=== PATIENT | female | born 2000 | race Two or more races ===

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

== ENCOUNTER 2024-11-06 18:32 | Emergency (ER) | payer OTHER ==
[~2024-11-06] VITALS: Ht 157.5 cm; Wt 59.0 kg
[~2024-11-06 18:32] MED LIST changes: +FERRACTIV IRON1 EACH; +TRANDATE300 MG PO
[2024-11-06 18:54] VITALS: BP 136/84; O2SAT 98
[2024-11-06] MEDS ORDERED: FAMOTIDINE/PF 20 MG in 0.9 % SODIUM CHLORIDE 8 ML IV PUSH STA (20:17)
[2024-11-06] MEDS ORDERED: RINGERS SOLUTION,LACTATED 1,000 ML IV SCH (20:30)
[2024-11-06] MEDS ORDERED: HYOSCYAMINE SULFATE 0.125 MG TAB.SUBL SL ONE (20:30)
[2024-11-06] MEDS ORDERED: ONDANSETRON HCL 2 MG/ML VIAL IV ONE (20:30)
[2024-11-06] MEDS ORDERED: HYOSCYAMINE SULFATE 0.125 MG TAB.SUBL ONE (20:43)
[2024-11-06] MEDS ORDERED: ONDANSETRON HCL 2 MG/ML VIAL ONE (20:43)
[2024-11-06] MEDS ORDERED: FAMOTIDINE/PF 20 MG/2 ML VIAL ONE (20:44)
[2024-11-06 21:19] LABS: BASO % 0.3 % (0.1-1.2); HEMOGLOBIN 12.9 g/dL (11.2-15.7); LYMPH # 1.12 (1.18-3.74); LYMPH % 7.1 % (19.3-53.1); MEAN CORPUSCULAR HEMOGLOBIN 24.2 pg (25.6-32.2); MONO # 0.52 (0.24-0.82); MONO % 3.3 % (4.7-12.5); NEUT # 14.04 (1.56-6.13); PLATELET COUNT 436 K/uL (163-369); RED BLOOD COUNT 5.32 M/uL (3.93-5.22); RED CELL DISTRIBUTION WIDTH 14.1 % (11.6-14.4)
[2024-11-06 21:46] LABS: ALBUMIN 3.5 gm/dL (3.4-5.0); BILIRUBIN TOTAL 0.67 mg/dL (0.3-1.2); CALCIUM 9.8 mg/dL (8.5-10.1); CREATININE SERUM 0.52 mg/dL (0.55-1.02); GFR 147.46; GLOBULINA 4.7 G/DL (2.4-3.5); POTASSIUM 4.06 mEq/L (3.5-5.1); TOTAL PROTEIN 8.2 gm/dL (6.4-8.2)
[2024-11-06] MEDS ORDERED: METOCLOPRAMIDE HCL 5 MG/ML VIAL ONE (22:26)
[2024-11-06] MEDS ORDERED: METOCLOPRAMIDE HCL 10 MG in DEXTROSE 5 % IN WATER 50 ML IV ONE (22:30)
[2024-11-06] MEDS ORDERED: PEPCID AC20 MG PO (23:02)
[2024-11-06] MEDS ORDERED: ONDANSETRON ODT8 MG PO (23:02)
[2024-11-06 23:04] LABS: PH,URINE 5.5 (5.0-8.0); URINE APPEARANCE Clear; URINE BILIRRUBIN Negative (NEGATIVE); URINE BLOOD Trace; URINE COLOR Yellow; URINE GLUCOSE Negative (NEGATIVE); URINE LEUKOCYTE Negative; URINE NITRATE Negative; URINE PROTEIN Trace (NEGATIVE)
[2024-11-06 23:09] LABS: URINE BACTERIA 597.2 uL (0.0-1933); URINE EPITHELIAL CELLS 27.2 uL (0.0-38.8); URINE RBC 5.5 uL (0.0-20.8); URINE WBC 19.9 uL (0.0-23.2)
[2024-11-06 23:27] LABS: URINE CAST 0.44 uL (0.0-1.40); URINE KETONE 80 (NEGATIVE)
== END 2024-11-06 23:56 | disposition home or self-care (01) ==
LOC: ER 18:32
PROVIDERS: General Practice
DX: O99.611 Diseases of the digestive system complicating pregnancy, first trimester (principal); K92.89 Other specified diseases of the digestive system; Z3A.08 8 weeks gestation of pregnancy; K52.89 Other specified noninfective gastroenteritis and colitis; I10 Essential (primary) hypertension

== ENCOUNTER 2024-11-08 12:21 | Emergency (ER) | payer OTHER ==
[~2024-11-08] VITALS: Ht 157.5 cm; Wt 59.0 kg
[~2024-11-08 12:21] MED LIST changes: +ONDANSETRON ODT8 MG PO; +PEPCID AC20 MG PO
[2024-11-08 17:04] LABS: BASO % 0.4 % (0.1-1.2); EOS # 0.03 (0.04-0.54); EOS % 0.4 % (0.7-7.0); HEMOGLOBIN 12.2 g/dL (11.2-15.7); LYMPH % 26.5 % (19.3-53.1); MEAN CORPUSCULAR HEMOGLOBIN 24.6 pg (25.6-32.2); MONO # 1.18 (0.24-0.82); NEUT # 4.57 (1.56-6.13); NEUT % 57.7 % (34.0-71.1); PLATELET COUNT 328 K/uL (163-369); RED BLOOD COUNT 4.96 M/uL (3.93-5.22)
[2024-11-08 17:09] LABS: MONO % 14.9 % (4.7-12.5)
[2024-11-08 17:53] LABS: URINE APPEARANCE Cloudy; URINE BILIRRUBIN Negative (NEGATIVE); URINE BLOOD Large; URINE COLOR Dark Yellow; URINE GLUCOSE Negative (NEGATIVE); URINE KETONE Negative (NEGATIVE); URINE LEUKOCYTE Moderate; URINE NITRATE Negative; URINE PROTEIN Trace (NEGATIVE)
[2024-11-08 17:56] LABS: URINE BACTERIA 3859.2 uL (0.0-1933); URINE EPITHELIAL CELLS 107.8 uL (0.0-38.8); URINE RBC 67.6 uL (0.0-20.8); URINE WBC 395.9 uL (0.0-23.2)
[2024-11-08 17:58] LABS: CREATININE SERUM 0.3 mg/dL (0.55-1.02); GFR 278.18; POTASSIUM 3.93 mEq/L (3.5-5.1)
[2024-11-08 18:09] LABS: URINE CAST 0.73 uL (0.0-1.40)
== END 2024-11-08 21:06 | disposition home or self-care (01) ==
LOC: ER 12:36
PROVIDERS: Emergency Medicine
DX: O20.8 Other hemorrhage in early pregnancy (principal); Z3A.08 8 weeks gestation of pregnancy

== ENCOUNTER 2025-04-26 08:43 | Emergency (ER) | payer OTHER ==
[~2025-04-26] VITALS: Ht 157.5 cm; Wt 59.0 kg
[2025-04-26] MEDS ORDERED: ACETAMINOPHEN 500 MG GEL..CAP PO ONE ×2 (09:30→10:06)
[2025-04-26] MEDS ORDERED: POLYETHYLENE GLYCOL 3350 17 GM BLIST.PACK PO ONE (09:30)
[2025-04-26 10:23] LABS: BASO % 0.2 % (0.1-1.2); EOS # 0.03 (0.04-0.54); EOS % 0.3 % (0.7-7.0); LYMPH # 2.17 (1.18-3.74); LYMPH % 19.6 % (19.3-53.1); MEAN PLATELET VOLUME 8.00 fl (9.4-12.4); MONO # 0.50 (0.24-0.82); MONO % 4.5 % (4.7-12.5); NEUT # 8.30 (1.56-6.13); NEUT % 75.1 % (34.0-71.1); RED CELL DISTRIBUTION WIDTH 13.5 % (11.6-14.4)
[2025-04-26 13:48] LABS: URINE APPEARANCE Clear; URINE BILIRRUBIN Negative (NEGATIVE); URINE BLOOD Negative; URINE COLOR Yellow; URINE GLUCOSE Negative (NEGATIVE); URINE KETONE Negative (NEGATIVE); URINE LEUKOCYTE Negative; URINE NITRATE Negative; URINE PROTEIN Negative (NEGATIVE); URINE UROBILINOGEN 0.2 E.U./dl
[2025-04-26 13:52] LABS: URINE BACTERIA 327.5 uL (0.0-1933); URINE EPITHELIAL CELLS 13.3 uL (0.0-38.8); URINE WBC 5.3 uL (0.0-23.2)
[2025-04-26 14:06] LABS: URINE CAST 0.00 uL (0.0-1.40); URINE RBC 1.9 uL (0.0-20.8)
== END 2025-04-26 13:22 | disposition home or self-care (01) ==
LOC: ER 08:43
PROVIDERS: General Practice
DX: Z33.1 Pregnant state, incidental (principal); Z3A.15 15 weeks gestation of pregnancy; R10.20 Pelvic and perineal pain unspecified side

== ENCOUNTER 2025-05-22 00:07 | Emergency (ER) | payer OTHER ==
[~2025-05-22] VITALS: Ht 157.5 cm; Wt 59.0 kg
[2025-05-22] MEDS ORDERED: ONDANSETRON HCL 2 MG/ML VIAL IV STA (03:06)
[2025-05-22] MEDS ORDERED: LACTOBACILLUS ACIDOPHILUS 1 CAP CAP PO STA (03:07)
[2025-05-22] MEDS ORDERED: FAMOTIDINE/PF 20 MG/2 ML VIAL IV PUSH STA (03:07)
[2025-05-22] MEDS ORDERED: 0.9 % SODIUM CHLORIDE 1,000 ML IV ONE (03:15)
[2025-05-22] MEDS ORDERED: ONDANSETRON HCL 2 MG/ML VIAL ONE (04:17)
[2025-05-22] MEDS ORDERED: LACTOBACILLUS ACIDOPHILUS 1 CAP CAP PO ONE (04:17)
[2025-05-22] MEDS ORDERED: FAMOTIDINE/PF 20 MG/2 ML VIAL ONE (04:17)
[2025-05-22 04:49] LABS: BASO % 0.3 % (0.1-1.2); EOS # 0.01 (0.04-0.54); EOS % 0.1 % (0.7-7.0); LYMPH # 1.83 (1.18-3.74); LYMPH % 16.4 % (19.3-53.1); MEAN PLATELET VOLUME 8.10 fl (9.4-12.4); MONO # 0.56 (0.24-0.82); MONO % 5.0 % (4.7-12.5); NEUT # 8.68 (1.56-6.13); NEUT % 77.8 % (34.0-71.1); RED CELL DISTRIBUTION WIDTH 13.7 % (11.6-14.4)
[2025-05-22 05:25] LABS: BUN CREA RATIO 29.0 (7.0-25.0); CREATININE SERUM 0.38 mg/dL (0.55-1.02); GFR 209.86; GLUCOSE FASTING 91.0 mg/dL (65-100); OSMOLALITY SERUM 275.0 MOSM/KG (275-295)
[2025-05-22 08:02] LABS: URINE APPEARANCE Clear; URINE BILIRRUBIN Negative (NEGATIVE); URINE BLOOD Negative; URINE COLOR Dark Yellow; URINE GLUCOSE Negative (NEGATIVE); URINE LEUKOCYTE Negative; URINE NITRATE Negative; URINE PROTEIN Trace (NEGATIVE); URINE UROBILINOGEN 1.0 E.U./dl
[2025-05-22 08:07] LABS: URINE EPITHELIAL CELLS 59.9 uL (0.0-38.8); URINE WBC 16.5 uL (0.0-23.2)
[2025-05-22 08:36] LABS: URINE CAST 0.28 uL (0.0-1.40); URINE KETONE 80 (NEGATIVE); URINE MUCUS MODERATE; URINE RBC 1.9 uL (0.0-20.8)
[2025-05-22] MEDS ORDERED: DUI500 PO (13:52)
[2025-05-22] MEDS ORDERED: PEPCID AC20 MG PO (13:54)
== END 2025-05-22 14:25 | disposition home or self-care (01) ==
LOC: ER 00:08
PROVIDERS: General Practice
DX: O21.8 Other vomiting complicating pregnancy (principal); O34.12 Maternal care for benign tumor of corpus uteri, second trimester; O44.02 Complete placenta previa NOS or without hemorrhage, second trimester; O23.42 Unspecified infection of urinary tract in pregnancy, second trimester; N39.0 Urinary tract infection, site not specified; Z3A.19 19 weeks gestation of pregnancy
CPT/HCPCS: 36415; 76805; 76817; 76819; 99284; J2405; J3490; J7030